=== PATIENT | female | born 2000 | race Caucasian/White ===

== ENCOUNTER 2023-10-21 22:16 | Emergency (ER) | payer BC, SELFPAY ==
[2023-10-21 22:30] VITALS: BP 134/82
--- NOTE | 2023-10-21 22:48 | ED.GENMED ---
History of Present Illness
General
Chief Complaint: Chest Pain
Source: patient
Exam Limitations: none
Time Seen by Provider: 10/21/23 22:35
Nursing documentation reviewed up to this point in time: agreed with
History of Present Illness
History of Present Illness:
This is a 23-year-old female who has history of generalized anxiety disorder who complains of upper back pain/pain across to her shoulders that began around noon today, persistent throughout the day. She does admit to similar episodes of pain but
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 She thought her back pain was odd as she was not working today. Due to
persistent upper back discomfort she decided to lay down tonight and after doing so she then developed substernal chest pain that seems worse with deep breath. She admits to becoming anxious which she suspects may have worsened her chest pain. She
has not had a cough, no fevers or chills, no palpitations. She admits to somewhat chronic nausea but has had no vomiting. Chronic nausea she attributes to having a 'weak stomach' She also notes history of GERD. She has not been taking anything
for symptoms.
She does admit to similar sporadic substernal chest pain only noted with lying down that occurs perhaps 1-2 times per month but much worse tonight prompting ED visit.
No recent travel, she denies leg pain or swelling.
Her daily medications include Zoloft as well as norethindrone.
She denies tobacco use but does smoke marijuana. No other drug use nor alcohol use.
Past History
Past History
ED Past Medical History: GERD and Psychiatric (Generalized anxiety disorder)
ED Past Surgical History: None
Social History
Tobacco: Non-smoker
Alcohol: Occasional
Drug: Marijuana
Personal: Single
Living: with family
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
Family History
Family History: Other (Migraine headaches)
Phy Exam
Physical Exam
Physical Exam:
GENERAL: 23-year-old overweight female appears her stated age, bright and alert, pleasant, appears in no acute distress. Vital signs within normal limits.
EYE: anicteric
NECK: Supple, nontender, no meningismus, no significant adenopathy.
ENT: oral mucosa is moist. No rhinorrhea.
CARDIAC: Regular rate and rhythm. no murmur. Mild parasternal tenderness to palpation.
LUNGS: Clear breath sounds bilaterally, no acute respiratory distress, no wheezes/rales/rhonchi
ABDOMEN: Rotund, soft, nondistended, without focal tenderness, no r/g, no cvat. normoactive BS.
BACK: Mild tenderness palpation upper thoracic paravertebral region as well as mild lower bilateral paracervical tenderness palpation. No midline bony tenderness.
NEUROLOGICAL: Alert and oriented x3, no focal neuro deficits. Gait is steady.
SKIN: Warm and dry, normal color, skin intact. No rash.
MUSCULOSKELETAL: No C/C/E. peripheral pulses are full and equal b/l. No palpable tenderness.
PSYCH: Normal and appropriate interaction.
Scores
Heart Score for Chest Pain Patients
STEMI patient?: No
History: Slightly or Non-Suspicious
ECG: Normal
Age: </= 45 years
Risk Factors: No Risk Factors
Troponin: </= Normal Limit
Heart Score for Chest Pain Patients: 0
Heart Score Risk: 2.5% MACE over next 6 weeks
Course
Orders/Labs/Results
Orders:
Orders
10/21/23 22:21
Electrocardiogram (*1) Urgent
Reason for Study: Chest Pain
EKG- Treatment ONCE
10/21/23 22:43
Test Result ONCE
10/21/23 22:44
Pantoprazole [Protonix IV] 40 mg IV NOW STA
10/21/23 22:49
Complete Blood Count/With Diff Urgent
Comprehensive Metabolic Panel Urgent
D-Dimer Urgent
HCG, Serum Qualitative Screen Urgent
Troponin I Urgent
10/22/23 00:00
CR Chest - 2 Views Urgent
Comment:
Reason For Exam: acute CP, uppr back pain
Cervical Spine 4 or 5 Vw [CR Cervical Spine 4 Or 5 Vw] Urgent
Comment:
Reason For Exam: upper back, post neck pain
10/22/23 00:01
Mag Hydrox/Al Hydrox/Simeth [Maalox] 30 ml Phenobarb/Hyoscy/Atropine/Scop [] 10 ml Viscous Lidocaine 2% [Xylocaine Viscous Cup] 10 ml PO NOW
10/22/23 00:04
Mag Hydrox/Al Hydrox/Simeth [Maalox] 30 ml .ROUTE .STK-MED ONE
Phenobarb/Hyoscy/Atropine/Scop [] 10 ml .ROUTE .STK-MED ONE
Viscous Lidocaine 2% [Xylocaine Viscous Cup] 15 ml .ROUTE .STK-MED ONE
10/22/23 00:25
Ketorolac [Toradol] 30 mg IV NOW STA
Abnormal Lab Results
10/21/23
22:49
Hct 36.3 L %
(37.0-47.0)
Absolute Monos (auto) 0.8 H 10^3/uL
(0.1-0.6)
Glucose 104 H mg/dl
(70-99)
10/21/23 22:49
10/21/23 22:49
Vital Signs
Initial and Last Documented VS:
Initial Vital Signs
Pulse Resp Pulse Ox
89 17 93
10/21/23 22:27 10/21/23 22:27 10/21/23 22:27
Last Documented Vital Signs
Temp Pulse Resp BP Pulse Ox
98.7 F 73 19 134/82 97
10/21/23 22:30 10/22/23 00:15 10/22/23 00:15 10/21/23 22:30 10/22/23 00:15
MDM/Problems Addressed
Differential Diagnosis Includes:
Concern for GERD, musculoskeletal chest wall and back pain, as patient maintained on control pills must consider PE, ACS is unlikely.
EKG is unremarkable, within normal limits.
Will check labs including troponin, D-dimer. Will give an IV dose of Protonix.
*Radiology
Radiology exam reviewed: preliminary read by ED provider (Chest x-ray is unremarkable. Cervical spine x-ray shows reversal of lordotic curve otherwise unremarkable)
*Pulse Oximetry
Patient hypoxic: yes
*EKG
Interpreted by ED Provider?: Yes
Interpretation: normal
Comparison EKG: no comparison EKG present
Rate: normal
Rhythm: sinus
Edwall: normal axis
Interval: normal interval
QRS Pattern: normal QRS
Ischemia: no ischemia
*Critical Care Note
Total Time (30-74mins, 75-104mins- exclusive of procedures): Not Applicable
Update Note
Update Note:
Labs are unremarkable including negative D-dimer, normal troponin.
Patient reports moderate but only temporary relief of chest discomfort after GI cocktail. Moderate, sustained relief after an IV dose of Toradol. Upper back pain has improved as well after Toradol but has not completely resolved.
Chest x-ray is unremarkable. C-spine x-ray shows reversal of lordotic curve otherwise unremarkable.
Recommend initiation of daily Protonix for suspected GERD as cause for chest discomfort at nighttime as well as recurrent nausea. Recommend limited NSAIDs for upper back pain which I suspect is musculoskeletal in nature.
Can also try local moist heat, gentle stretching exercises.
Discussed importance of prompt follow-up with PCP for recheck.
Return precautions discussed.
ED Attending Note
-
Portions of this chart may have been created with voice recognition software.� Occasional wrong word or��sound alike� substitutions may have occurred due to the inherent limitations of voice recognition software.
Discharge Plan
Departure
Patient Disposition: Home (Routine Discharge)
Date of Disposition: 10/22/23
Time of Disposition: 01:27
Patient with high blood pressure during this ER visit?: No
Condition: Good
Discharge Problem:
Acute chest wall pain, acute on chronic upper back pain, Gastroesophageal reflux disease
Instructions: Acid Reflux and GERD in Adults (DC), Exercises for Upper Back Pain, Chest Pain PCP Follow Up
Prescriptions:
New
pantoprazole [Protonix] 40 mg tablet,delayed release (DR/EC)
40 mg PO DAILY Qty: 30 0RF
meloxicam 7.5 mg tablet
7.5 mg PO DAILY Qty: 20 0RF
No Action
amoxicillin 500 MG capsule
500 mg PO TID Qty: 30 0RF
dicyclomine 20 MG tablet
20 mg PO QIDPRN PRN (Reason: abdominal pain) Qty: 20 0RF
ondansetron 4 MG tablet,disintegrating
4 mg PO QIDPRN PRN (Reason: nausea/vomiting) Qty: 20 0RF
Referrals:
Osiris Bhatti, [Family Provider] - Call in 1-3 days for appt
Interventions
Interventions:
*General Assessment Last Done: 10/21/23 22:27
*Neglect/Abuse Screening Last Done: 10/21/23 22:39
ED- Fall Risk Assessment Last Done: 10/21/23 22:39
ED- Cardiac Assessment Last Done: 10/21/23 22:39
Discharge Date and Time
Print Language: TANZANIAN
[2023-10-21] MEDS: PROTONIX IV 40 MG IV (22:54)
[2023-10-21 22:57] LABS: % Basophils 0.6 % (0-2); % Eosinophils 1.7 % (0-6); % Immature Granulocytes 0.2 % (0-0.5); % Lymphocytes 30.8 % (20.5-51.1); % Monocytes 8.6 % (1.7-9.3); % Neutrophils 58.1 % (42.2-75.2); Absolute Basophils 0.1 10^3/uL (0-0.2); Absolute Eosinophils 0.2 10^3/uL (0-0.7); Absolute Lymphocytes 2.7 10^3/uL (1.2-3.4); Absolute Monocytes 0.8 10^3/uL (0.1-0.6); Absolute Neutrophils 5.1 10^3/uL (1.4-6.5); Hematocrit 36.3 % (37.0-47.0); Mean Corp Hgb Conc. 33.1 g/dL (33.0-37.0); Mean Corpuscular Hgb 27.3 pg (27.0-31.0); Mean Corpuscular Volume 82.5 fL (81.0-99.0); Mean Platelet Volume 9.6 fL (7.4-10.4); Nucleated Red Blood Cells % 0 %; Platelet Count 349 10^3/uL (130-400); Red Cell Dist. Width 12.7 % (11.5-14.5); White Blood Cell Count 8.8 10^3/uL (4.8-10.8)
[2023-10-21 23:11] LABS: ALT (SGPT) 14 U/L (0-35); AST (SGOT) 22 U/L (14-36); Albumin 4.2 g/dl (3.5-5.0); Alkaline Phosphatase 74 U/L (38-126); Blood Urea Nitrogen 16 mg/dl (7-17); Calcium 9.5 mg/dl (8.4-10.2); Carbon Dioxide 25 mmol/L (22-30); Chloride 106 mmol/L (98-107); Glucose 104 mg/dl (70-99); Potassium 4.4 mmol/L (3.5-5.1); Sodium 138 mmol/L (135-145); Total Bilirubin 0.3 mg/dl (0.2-1.3); Total Protein 6.8 g/dl (6.3-8.2); eGFR > 60.00
[2023-10-21 23:16] LABS: HCG, Serum Qualitative Screen Negative
[2023-10-21 23:21] LABS: Troponin I < 0.012 ng/ml
[2023-10-22] MEDS: MAALOX 50 PO (00:05)
[2023-10-22] MEDS: TORADOL 30 MG IV (00:39)
== END 2023-10-22 01:37 | disposition home or self-care (01) ==
LOC: EMR 22:16
PROVIDERS: EMERGENCY PHYSICIAN Emergency Medicine; FAMILY PHYSICIAN Family Medicine
DX: R07.89 Other chest pain (principal); M54.6 Pain in thoracic spine; R11.0 Nausea; K21.9 Gastro-esophageal reflux disease without esophagitis; G43.909 Migraine, unspecified, not intractable, without status migrainosus; F41.1 Generalized anxiety disorder; G89.29 Other chronic pain; Z79.3 Long term (current) use of hormonal contraceptives; Z79.899 Other long term (current) drug therapy
CPT/HCPCS: 99284; 96374; 96375; 71046; 72050; 80053; 84484; 84703; 85025; 85379; 93005

== ENCOUNTER 2023-12-08 09:03 | Outpatient (RCR) | payer BC, SELFPAY | END 2023-12-08 23:59 | disposition home or self-care (01) | LOC: RPT 09:03 | PROVIDERS: ATTENDING PHYSICIAN Family Medicine | DX: M54.12 Radiculopathy, cervical region (principal); S16.1XXD Strain of muscle, fascia and tendon at neck level, subsequent encounter; X58.XXXD Exposure to other specified factors, subsequent encounter; M54.6 Pain in thoracic spine; G89.29 Other chronic pain | CPT/HCPCS: 97010; 97110; 97112; 97140; 97162; 97535 ==

== ENCOUNTER 2023-12-19 09:13 | Outpatient (RCR) | payer BC, SELFPAY | END 2023-12-19 09:58 | disposition home or self-care (01) | LOC: RPT 09:13 | PROVIDERS: ATTENDING PHYSICIAN Family Medicine | DX: M54.12 Radiculopathy, cervical region (principal); S16.1XXD Strain of muscle, fascia and tendon at neck level, subsequent encounter; M54.6 Pain in thoracic spine; G89.29 Other chronic pain; Z73.6 Limitation of activities due to disability; R29.3 Abnormal posture | CPT/HCPCS: 97110; 97112; 97530 ==

== ENCOUNTER 2024-02-01 18:21 | Emergency (ER) | payer BC, SELFPAY ==
[2024-02-01 18:25] VITALS: BP 137/96
[2024-02-01 18:41] VITALS: BP 121/74
[2024-02-01 18:48] VITALS: BP 121/74
[2024-02-01 19:00] VITALS: BP 136/82
--- NOTE | 2024-02-01 19:13 | ED.GENMED ---
History of Present Illness
<Adelaida Pepper PA-C - Last Filed: 02/02/24 00:28>
General
Chief Complaint: Abdominal Symptoms
Source: patient
Exam Limitations: none
Time Seen by Provider: 02/01/24 18:37
Nursing documentation reviewed up to this point in time: agreed with
History of Present Illness
History of Present Illness:
Patient is a 23-year-old female presenting to the emergency department for evaluation of right pelvic discomfort. Patient states that yesterday morning she had a very severe, sharp pain in her right lower abdomen/pelvis which made her immediately
lightheaded and was associated with nausea. Pain lasted for about 10 minutes and then resolved. Patient states she had a repeat episode yesterday evening and has had 2 today. At this time�patient is asymptomatic. Patient states that she has had
intermittent similar pains in the past on both the left and right side and has attributed this to ovarian cysts. However�she has never had ovarian cyst formally diagnosed. She is concerned for possible ovarian torsion.
Patient denies any associated fever, chills, anorexia, changes in bowel movements, or urinary symptoms. Patient denies any abnormal vaginal bleeding or vaginal discharge. No history of sexually transmitted diseases.
Patient is currently sexually active. She is on an OCP prescribed by [facility]. Last menstrual period was approximate 2 weeks ago.
Past History
<Adelaida Pepper PA-C - Last Filed: 02/02/24 00:28>
Past History
ED Past Medical History: GERD and Psychiatric (Generalized anxiety disorder)
ED Past Surgical History: None
Social History
Tobacco: Non-smoker
Alcohol: Occasional
Drug: Marijuana
Personal: Single
Living: with family
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
Family History
Family History: Other (Migraine headaches)
Review of Systems
<Adelaida Pepper PA-C - Last Filed: 02/02/24 00:28>
Review of Systems
Allergies reviewed?: Yes
All Other Systems: ROS reviewed and negative except as documented in HPI and ROS
Phy Exam
<Adelaida Pepper PA-C - Last Filed: 02/02/24 00:28>
Physical Exam
Physical Exam:
Vitals: Patient's vital signs are stable. Afebrile
General: Patient is very well appearing, no acute distress
Skin: Warm and dry, no rashes or lesions
Head: Normocephalic, atraumatic
Eyes: Sclera nonicteric. EOMs intact. No nystagmus.
Throat: Protecting airway
Neck: Normal ROM, no cervical spine tenderness, no meningismus
Cardiac: Regular rate and rhythm, no murmurs.
Pulm: Normal respiratory effort, no wheezes, rales, rhonchi heard on exam.
Abdomen: Abdomen soft. Mild right lower quadrant abdominal pain without rebound tenderness or guarding. No CVA tenderness
Pelvic: Deferred by patient
Extremities: No evidence of cyanosis or edema. Great distal pulses
Neuro: AAOx3. CN II-XII intact. No focal neurologic deficits.
Psychiatric: Normal affect.
Course
<Adelaida Pepper PA-C - Last Filed: 02/02/24 00:28>
Orders/Labs/Results
Orders:
Orders
02/01/24 18:56
Test Result ONCE
US Pelvis W Transvag Combined Urgent
Comment: hx ovarian cysts eval for torsion
Reason For Exam: Intermittent RLQ pain, nausea, lightheadedness
02/01/24 19:33
Complete Blood Count/With Diff Urgent
Comprehensive Metabolic Panel Urgent
HCG, Serum Qualitative Screen Urgent
02/01/24 21:39
Urinalysis Reflex To Culture Urgent
Date Specimen was Collected: 02/01/24
Time Specimen was Collected: 21:38
Urine Microscopic Reflex Cult Urgent
Urine Culture Urgent
IMER Source: U
Specimen Description:
Date Specimen was Collected: 02/01/24
Time Specimen was Collected: 21:38
02/01/24 22:09
CT Abd/pel Without Iv Or Oral Urgent
Comment:
Reason For Exam: right flank/RLQ pain w hematuria
Abnormal Lab Results
02/01/24 02/01/24
19:33 21:39
Hgb 11.4 L g/dL
(12.0-16.0)
Hct 34.4 L %
(37.0-47.0)
MCV 79.4 L fL
(81.0-99.0)
MCH 26.3 L pg
(27.0-31.0)
Absolute Monos (auto) 0.8 H 10^3/uL
(0.1-0.6)
Urine Ketones Trace A
(Negative)
Ur Occult Blood Reflex 1+ A
(Negative)
Urine RBC 3-6 A /HPF
(0-2)
Urine Bacteria (Reflex) Many A
(Negative)
02/01/24 19:33
02/01/24 19:33
Vital Signs
Initial and Last Documented VS:
Initial Vital Signs
Temp Pulse Resp BP Pulse Ox
97.9 F 89 20 137/96 97
02/01/24 18:25 02/01/24 18:25 02/01/24 18:25 02/01/24 18:25 02/01/24 18:25
Last Documented Vital Signs
Temp Pulse Resp BP Pulse Ox
98.8 F 71 20 114/70 97
02/01/24 23:30 02/01/24 23:30 02/01/24 23:30 02/01/24 23:30 02/01/24 23:30
<Matt Gaytan MD - Last Filed: 02/01/24 23:24>
Orders/Labs/Results
Orders:
Orders
02/01/24 18:56
Test Result ONCE
US Pelvis W Transvag Combined Urgent
Comment: hx ovarian cysts eval for torsion
Reason For Exam: Intermittent RLQ pain, nausea, lightheadedness
02/01/24 19:33
Complete Blood Count/With Diff Urgent
Comprehensive Metabolic Panel Urgent
HCG, Serum Qualitative Screen Urgent
02/01/24 21:39
Urinalysis Reflex To Culture Urgent
Date Specimen was Collected: 02/01/24
Time Specimen was Collected: 21:38
Urine Microscopic Reflex Cult Urgent
Urine Culture Urgent
IMER Source: U
Specimen Description:
Date Specimen was Collected: 02/01/24
Time Specimen was Collected: 21:38
02/01/24 22:09
CT Abd/pel Without Iv Or Oral Urgent
Comment:
Reason For Exam: right flank/RLQ pain w hematuria
Abnormal Lab Results
02/01/24 02/01/24
19:33 21:39
Hgb 11.4 L g/dL
(12.0-16.0)
Hct 34.4 L %
(37.0-47.0)
MCV 79.4 L fL
(81.0-99.0)
MCH 26.3 L pg
(27.0-31.0)
Absolute Monos (auto) 0.8 H 10^3/uL
(0.1-0.6)
Urine Ketones Trace A
(Negative)
Ur Occult Blood Reflex 1+ A
(Negative)
Urine RBC 3-6 A /HPF
(0-2)
Urine Bacteria (Reflex) Many A
(Negative)
02/01/24 19:33
02/01/24 19:33
Vital Signs
Initial and Last Documented VS:
Initial Vital Signs
Temp Pulse Resp BP Pulse Ox
97.9 F 89 20 137/96 97
02/01/24 18:25 02/01/24 18:25 02/01/24 18:25 02/01/24 18:25 02/01/24 18:25
Last Documented Vital Signs
Temp Pulse Resp BP Pulse Ox
98.8 F 71 20 114/70 97
02/01/24 23:30 02/01/24 23:30 02/01/24 23:30 02/01/24 23:30 02/01/24 23:30
<Adelaida Pepper PA-C - Last Filed: 02/02/24 00:28>
MDM/Problems Addressed
Differential Diagnosis Includes:
Not limited to: Ovarian cyst, ovarian torsion, mittelschmerz, PID, tubo-ovarian abscess, ectopic , kidney stone, appendicitis, etc.
MDM/Problems Addressed:
23-year-old female presenting with 2 days of intermittent right pelvic pain associate with lightheadedness and nausea. No fever, anorexia, urinary symptoms, or abnormal vaginal bleeding/discharge. Symptoms very intermittent�currently asymptomatic
patient mildly hypertensive on arrival, otherwise vital signs stable. Exam as above. Patient very well-appearing, in no distress at this time. Very mild right lower quadrant abdominal tenderness without rebound tenderness or guarding. No CVA
tenderness. Cardio/pulmonary assessment unremarkable. Did offer pelvic exam�which patient declined. Differential broad at this time although considerations include ovarian cyst, mittelschmerz, ectopic , intermittent ovarian torsion.
Less likely acute intra-abdominal infection inclusing appendicitis given pain is intermittent and patient is afebrile with benign abdominal exam. Lower suspicion for PID/tuboovarian abscess as patient denies any history of STD/STIs. Will obtain
basic labs, and check pelvic ultrasound. Will obtain urinalysis, as well. Offered patient Toradol which she declined as she is asymptomatic at this
Update: Labs reviewed. No leukocytosis. Mild anemia with hemoglobin 11.4�stable from prior chemistry without any abnormalities. test negative. Ultrasound pending. Patient remains very well-appearing, without any episodes of pain in
the emergency department. Case was signed out to attending physician pending US report.
Chronic conditions affecting care:
N/A
Acute Exacerbation and/or Progression of Chronic Illness:
N/A
<Adelaida Pepper PA-C - Last Filed: 02/02/24 00:28>
*Pulse Oximetry
Patient hypoxic: no
*EKG
Interpreted by ED Provider?: NA
*Information Technology Specialist Interpretation
Rate: Information Technology Specialist- N/A
*Critical Care Note
Total Time (30-74mins, 75-104mins- exclusive of procedures): Not Applicable
ED Attending Note
<Adelaida Pepper PA-C - Last Filed: 02/02/24 00:28>
-
Portions of this chart may have been created with voice recognition software.� Occasional wrong word or��sound alike� substitutions may have occurred due to the inherent limitations of voice recognition software.
<Matt Gaytan MD - Last Filed: 02/01/24 23:24>
ED Attending Note
Patient seen and examined by attending physician: Yes
ED Attending Note:
Patient presents to ED secondary to intermittent lower abdominal pain over the past 2 days. Abdominal pain described as sharp, nonradiating, without any alleviating or exacerbating factors. Denies trauma. Denies difficulty urination. Denies
fever or chills. Patient is sexually active, but denies vaginal bleeding/discharge/new trauma. At the time evaluation ED, however, patient states that her pain has subsided.
Physical Exam
General: no apparent distress, not acutely ill. afebrile
Head: nc/at. eomi
Neck: supple. normal range of motion
Abdomen: normal bowel sounds. not tender. no distention.
Neuro: alert and oriented. no focal neurological deficits
Skin: no rash
Psychiatric: well kept. interactive and cooperative
Extremities: no edema. no calf tenderness.
Patient declined pelvic exam in ED. Patient remains asymptomatic during observation.
Patient with an unremarkable In ED, including blood work and pelvic ultrasound. However, UA noted with RBCs on differential. As such, in light of intermittent pain, difficult to exclude potential renal colic as etiology. Will order CT abd/pel.
CT abd/pel: no acute findings.
Urine cx pending. Symptoms inconsistent with UTI. Will hold off abx.
At this time, patient feels comfortable going home for outpatient follow-up with her primary care physician or [facility] physician as an outpatient. Advised to return to ED with worsening symptoms, i.e. fever/worsening pain/vomiting.
Discharge Plan
Departure
Patient Disposition: Home (Routine Discharge)
Date of Disposition: 02/01/24
Time of Disposition: 23:24
Patient with high blood pressure during this ER visit?: Yes
Discharge Problem:
Abdominal pain
Instructions: Abdominal Pain
Prescriptions:
No Action
amoxicillin 500 MG capsule
500 mg PO TID Qty: 30 0RF
dicyclomine 20 MG tablet
20 mg PO QIDPRN PRN (Reason: abdominal pain) Qty: 20 0RF
ondansetron 4 MG tablet,disintegrating
4 mg PO QIDPRN PRN (Reason: nausea/vomiting) Qty: 20 0RF
pantoprazole [Protonix] 40 mg tablet,delayed release (DR/EC)
40 mg PO DAILY Qty: 30 0RF
meloxicam 7.5 mg tablet
7.5 mg PO DAILY Qty: 20 0RF
Referrals:
Tanya Perez DO [Active] - Call in 1-3 days for appt
Osiris Bhatti DO [Family Provider] -
Activity Restrictions/Additional Instructions:
RETURN TO THE EMERGENCY DEPARTMENT WITH FEVERS, PERSISTENT/WORSENING ABDOMINAL PAIN, DIZZINESS/LIGHTHEADEDNESS, LOSS OF APPETITE, INTRACTABLE NAUSEA/VOMITING, WORSENING IN CURRENT SYMPTOMS, OR ANY OTHER CONCERNS
-It is important to stay well-hydrated. You can take Motrin and/or Tylenol at home as needed for discomfort.
-As discussed cessation important you follow-up with [facility] for further evaluation/management and routine care. Information for Dr. Perez has been provided for you above.
Monitor your symptoms closely return to the emergency department with any acute worsening/new symptoms
Interventions
Interventions:
*Risk Screen - Suicide Last Done: 02/01/24 18:25
*General Assessment Last Done: 02/01/24 18:25
*Neglect/Abuse Screening Last Done: 02/01/24 18:25
*ED COVID-19 Vaccine History Last Done: 02/01/24 18:45
*Nursing Disposition Last Done: 02/02/24 00:09
XG-Bvpuxy-Lwodkftful Assessment Last Done: 02/01/24 18:45
Discharge Date and Time
Discharge Date/Time: 02/02/24 00:09
Print Language: EGYPTIAN
[2024-02-01 19:41] LABS: % Basophils 0.4 % (0-2); % Eosinophils 1.2 % (0-6); % Immature Granulocytes 0.4 % (0-0.5); % Lymphocytes 26.5 % (20.5-51.1); % Monocytes 7.9 % (1.7-9.3); % Neutrophils 63.6 % (42.2-75.2); Absolute Eosinophils 0.1 10^3/uL (0-0.7); Absolute Lymphocytes 2.5 10^3/uL (1.2-3.4); Absolute Monocytes 0.8 10^3/uL (0.1-0.6); Hematocrit 34.4 % (37.0-47.0); Hemoglobin 11.4 g/dL (12.0-16.0); Mean Corp Hgb Conc. 33.1 g/dL (33.0-37.0); Mean Corpuscular Hgb 26.3 pg (27.0-31.0); Mean Corpuscular Volume 79.4 fL (81.0-99.0); Mean Platelet Volume 9.1 fL (7.4-10.4); Nucleated Red Blood Cells % 0 %; Platelet Count 357 10^3/uL (130-400); Red Blood Cell Count 4.33 10^6/uL (4.20-5.40); Red Cell Dist. Width 12.8 % (11.5-14.5); White Blood Cell Count 9.5 10^3/uL (4.8-10.8)
[2024-02-01 19:51] LABS: HCG, Serum Qualitative Screen Negative
[2024-02-01 19:55] LABS: ALT (SGPT) 14 U/L (0-35); AST (SGOT) 20 U/L (14-36); Albumin 4.2 g/dl (3.5-5.0); Alkaline Phosphatase 71 U/L (38-126); Blood Urea Nitrogen 13 mg/dl (7-17); Calcium 9.1 mg/dl (8.4-10.2); Carbon Dioxide 24 mmol/L (22-30); Chloride 104 mmol/L (98-107); Glucose 79 mg/dl (70-99); Potassium 4.1 mmol/L (3.5-5.1); Sodium 141 mmol/L (135-145); Total Bilirubin 0.2 mg/dl (0.2-1.3); Total Protein 6.8 g/dl (6.3-8.2); eGFR > 60.00
[2024-02-01 21:46] LABS: Urine Albumin Negative (Neg - Trace); Urine Bilirubin Negative (Negative); Urine Character Clear (Clear); Urine Color Yellow; Urine Glucose Negative (Negative); Urine Ketone Trace (Negative); Urine Leukocyte Negative (Negative); Urine Nitrite Negative (Negative); Urine Occult Blood 1+ (Negative); Urine Urobilinogen Negative (Neg - 1+)
[2024-02-01 22:03] LABS: Urine Mucus Moderate
[2024-02-01 22:04] LABS: Urine Bacteria Many (Negative); Urine White Cell 0-2 /HPF (0-5)
[2024-02-01 23:30] VITALS: BP 114/70
== END 2024-02-02 00:09 | disposition home or self-care (01) ==
LOC: EMR 18:21
PROVIDERS: Physician Assistant; EMERGENCY PHYSICIAN Emergency Medicine; FAMILY PHYSICIAN Family Medicine
DX: R10.30 Lower abdominal pain, unspecified (principal); K21.9 Gastro-esophageal reflux disease without esophagitis; D64.9 Anemia, unspecified
CPT/HCPCS: 99284; 74176; 76830; 76856; 80053; 81003; 81015; 84703; 85025; 87086

== ENCOUNTER → 2024-03-01 09:31 | Outpatient (REF) | payer BC, SELFPAY | LOC: HWRAD 09:31 | PROVIDERS: ATTENDING PHYSICIAN Family Medicine | DX: N20.0 Calculus of kidney (principal) | CPT/HCPCS: 76770 ==

== ENCOUNTER → 2024-03-02 15:40 | Outpatient (REF) | payer BC, SELFPAY | LOC: CPAP 15:40 | PROVIDERS: ATTENDING PHYSICIAN Student in an Organized Health Care Education/Training Program | DX: Z01.419 Encounter for gynecological examination (general) (routine) without abnormal findings (principal); Z11.3 Encounter for screening for infections with a predominantly sexual mode of transmission | CPT/HCPCS: 87491; 87591; G0123 ==

== ENCOUNTER 2025-03-26 18:46 | Emergency (ER) | payer BC, SELFPAY ==
[2025-03-26 18:52] VITALS: BP 128/69
--- NOTE | 2025-03-26 19:08 | ED.GENMED ---
History of Present Illness
General
Chief Complaint: Musculo-Skeletal Complaint
Source: patient
Time Seen by Provider: 03/26/25 18:48
History of Present Illness
History of Present Illness:
24-year-old female with past medical history of GERD and anxiety and depression presenting to the emergency department for evaluation after a syncopal episode shortly after a shower, woke up and was experiencing pins and needle sensation generalized
throughout her body, also noting some mild left ankle pain. Patient notes that she has passed out before, did have some prodromal symptoms prior to this syncopal episode including feeling lightheaded. Patient denies any headaches, visual changes
or vomiting. No fevers or infectious symptoms.
Past History
Past History
ED Past Medical History: GERD and Psychiatric (Generalized anxiety disorder)
ED Past Surgical History: None
Social History
Tobacco: Non-smoker
Alcohol: Occasional
Drug: Marijuana
Personal: Single
Living: with family
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
Family History
Family History: Other (Migraine headaches)
Review of Systems
Review of Systems
All Other Systems: ROS reviewed and negative except as documented in HPI and ROS
Phy Exam
Physical Exam
Physical Exam:
GENERAL: Alert , in no apparent distress
HEAD: Normocephalic atraumatic
EYE: conjunctiva clear
NECK: Supple
ENT: o/p clr, mmm.
CARDIAC: Regular rate and rhythm
LUNGS: Clear breath sounds bilaterally, no acute respiratory distress, no wheezes/rales/rhonchi
NEUROLOGICAL: Alert and oriented
SKIN: Warm and dry, skin intact.
MUSCULOSKELETAL: well perfused. No obvious edema to the left ankle. No focal areas of tenderness. Neurovascular intact.
PSYCH: Normal and appropriate interaction.
Scores
Heart Failure Risk
Heart Failure Risk Score: Not Applicable
Heart Score for Chest Pain Patients
STEMI patient?: Not applicable
Withdrawal Assessment of Alcohol
Withdrawal Assessment Completed?: Not applicable
Course
Orders/Labs/Results
Orders:
Orders
03/26/25 18:52
Electrocardiogram (*1) Urgent
Reason for Study: Syncope
EKG- Treatment ONCE
0.9% Sodium Chloride 1000 ml [Nss] 1,000 ml IV BOLUS
Test Result ONCE
CR Ankle - Left Min 3 Views Urgent
Comment:
Reason For Exam: pain, fall
03/26/25 19:28
Complete Blood Count/With Diff Urgent
Comprehensive Metabolic Panel Urgent
HCG, Serum Qualitative Screen Urgent
Abnormal Lab Results
03/26/25
19:28
WBC 11.2 H 10^3/uL
(4.8-10.8)
MCH 26.7 L pg
(27.0-31.0)
MCHC 32.0 L g/dL
(33.0-37.0)
Abs Immat Gran (auto) 0.1 H 10^3/uL
(0-0.05)
Absolute Neuts (auto) 7.8 H 10^3/uL
(1.4-6.5)
03/26/25 19:28
03/26/25 19:28
Vital Signs
Initial and Last Documented VS:
Initial Vital Signs
Temp Pulse Resp BP Pulse Ox
98.5 F 68 18 128/69 97
03/26/25 18:52 03/26/25 18:52 03/26/25 18:52 03/26/25 18:52 03/26/25 18:52
Last Documented Vital Signs
Temp Pulse Resp BP Pulse Ox
98.5 F 68 18 128/69 97
03/26/25 18:52 03/26/25 18:52 03/26/25 18:52 03/26/25 18:52 03/26/25 19:11
MDM/Problems Addressed
Differential Diagnosis Includes:
Vagal event
Orthostasis
Dehydration
Electrolyte Imbalance
Cardiac Arrhythmia
Valvular Dysfunction
Medication side effects
MDM/Problems Addressed:
24-year-old female presenting to the ER for evaluation following syncopal event. Still notes some mild paresthesia. Left ankle pain as well. Exam reassuring, vitals normal. Will check labs, EKG and treat with IV fluids. Anticipate discharge
home.
*Pulse Oximetry
SaO2: 97
Oxygen Mode of Delivery: Room air
Patient hypoxic: no
*EKG
Heart Rate: 74
Rate: normal
Rhythm: sinus
Alkol: normal axis
Ischemia: no ischemia
*Critical Care Note
Total Time (30-74mins, 75-104mins- exclusive of procedures): Not Applicable
Data Reviewed
Review of Other/Old Records Reveals: Labs and Records
Patient Management
Escalation/DeEscalation of care consider admission/obs:
Work up unremarkable. XR negative for fracture. EKG without ectopy or ischemia. Stable for d/c home. Aware of return precautions
ED Attending Note
-
Portions of this chart may have been created with voice recognition software.� Occasional wrong word or��sound alike� substitutions may have occurred due to the inherent limitations of voice recognition software.
Discharge Plan
Departure
Patient Disposition: Home (Routine Discharge)
Date of Disposition: 03/26/25
Time of Disposition: 20:08
Patient with high blood pressure during this ER visit?: No
Discharge Problem:
Syncope, Left ankle sprain
Instructions: Syncope (fainting) (DC)
Prescriptions:
No Action
amoxicillin 500 MG capsule
500 mg PO TID Qty: 30 0RF
dicyclomine 20 MG tablet
20 mg PO QIDPRN PRN (Reason: abdominal pain) Qty: 20 0RF
ondansetron 4 MG tablet,disintegrating
4 mg PO QIDPRN PRN (Reason: nausea/vomiting) Qty: 20 0RF
pantoprazole [Protonix] 40 mg tablet,delayed release (DR/EC)
40 mg PO DAILY Qty: 30 0RF
meloxicam 7.5 mg tablet
7.5 mg PO DAILY Qty: 20 0RF
Referrals:
Osiris Bhatti DO [Family Provider, Family Practice]
Interventions
Interventions:
*General Assessment Last Done: 03/26/25 18:52
*Neglect/Abuse Screening Last Done: 03/26/25 18:52
*ED COVID-19 Vaccine History Last Done: 03/26/25 19:00
*ED Influenza Vaccine History Last Done: 03/26/25 19:00
*Risk Screen - Suicide (C-SSRS) Last Done: 03/26/25 18:52
*Nursing Disposition Last Done: 03/26/25 21:23
ED-Musculoskeletal Assessment Last Done: 03/26/25 19:31
Discharge Date and Time
Discharge Date/Time: 03/26/25 21:23
Print Language: AZERI
[2025-03-26] MEDS: NSS 1000 IV (19:32)
[2025-03-26 19:38] LABS: Hematocrit 38.8 % (37.0-47.0); Hemoglobin 12.4 g/dL (12.0-16.0); Mean Corp Hgb Conc. 32.0 g/dL (33.0-37.0); Mean Corpuscular Volume 83.4 fL (81.0-99.0); Nucleated Red Blood Cells % 0 %; Platelet Count 325 10^3/uL (130-400); Red Cell Dist. Width 13.2 % (11.5-14.5)
[2025-03-26 19:59] LABS: HCG, Serum Qualitative Screen Negative
[2025-03-26 20:07] LABS: ALT (SGPT) 14 U/L (0-35); AST (SGOT) 23 U/L (14-36); Albumin 4.2 g/dl (3.5-5.0); Alkaline Phosphatase 72 U/L (38-126); Blood Urea Nitrogen 11 mg/dl (7-17); Calcium 9.1 mg/dl (8.4-10.2); Carbon Dioxide 25 mmol/L (22-30); Chloride 103 mmol/L (98-107); Glucose 83 mg/dl (70-99); Potassium 4.8 mmol/L (3.5-5.1); Sodium 135 mmol/L (135-145); Total Protein 6.9 g/dl (6.3-8.2); eGFR > 60.00
== END 2025-03-26 21:23 | disposition home or self-care (01) ==
LOC: EMR 18:46
PROVIDERS: Physician Assistant Medical; EMERGENCY PHYSICIAN Emergency Medicine; FAMILY PHYSICIAN Family Medicine
DX: R55 Syncope and collapse (principal); S93.402A Sprain of unspecified ligament of left ankle, initial encounter; W18.2XXA Fall in (into) shower or empty bathtub, initial encounter; Y93.E1 Activity, personal bathing and showering; K21.9 Gastro-esophageal reflux disease without esophagitis; F41.1 Generalized anxiety disorder; F32.A Depression, unspecified
CPT/HCPCS: 99284; 73610; 80053; 84703; 85025; 93005

== ENCOUNTER → 2025-03-28 15:45 | Outpatient (REF) | payer BC, SELFPAY | LOC: CLAB 15:45 | PROVIDERS: ATTENDING PHYSICIAN Nurse Practitioner Family | DX: J35.1 Hypertrophy of tonsils (principal); J02.9 Acute pharyngitis, unspecified | CPT/HCPCS: 87070 ==